=== PATIENT | male | born 1975 | race Two or more races ===

== ENCOUNTER 2019-03-16 18:32 | Inpatient (IN) | payer MEDICAID ==
[~2019-03-16] VITALS: Ht 193 cm; Wt 89.8 kg
--- NOTE | 2019-03-16 19:08 | NUR ---
"Hypertensive for a long time not on pills on 03/06 had incident which gave me panic attack/pressure on chest went to ER BP high meds given Ran out". STATES HAS HAD HX HTN SINCE AGE 15 BUT WAS NOT TREATED UNTIL RECENTLY. AOX4, RR EVEN AND UNLABORED, AMB, NO ACUTE DISTRESS NOTED. SKIN INTACT, ON MONITOR. READY FOR EVAL.
[2019-03-16] MEDS ORDERED: ENALAPRILAT INJ (1.25 MG/ML) 1.25 MG/ML VIAL IV ONE ×2 (19:28→22:12)
[2019-03-16] MEDS ORDERED: KETOROLAC TROMETHAMINE 15 MG/ML VIAL ONE (19:28)
[2019-03-16] MEDS ORDERED: ENALAPRILAT INJ (1.25 MG/ML) 1.25 MG/ML VIAL IV PRN (19:30)
[2019-03-16] MEDS ORDERED: KETOROLAC TROMETHAMINE INJ 30 MG/ML VIAL IV ONE (19:30)
[2019-03-16] MEDS ORDERED: IV NS 0.9% 500 ML BAG IV ONE (19:30)
[2019-03-16 20:03] LABS: CALCIUM, SERUM 9.4 mg/dL (8.5-10.1); CARBON DIOXIDE 26 mmol/L (21-32); CHLORIDE 105 mmol/L (98-107); CREATININE 0.9 mg/dL (0.6-1.3); GLUCOSE 98 mg/dL (74-106); POTASSIUM 3.8 mmol/L (3.5-5.1); SODIUM SERUM 141 mmol/L (136-145); UREA NITROGEN, BLOOD 11 mg/dL (7-18)
[2019-03-16 20:10] LABS: ALANINE AMINOTRANSFERASE 30 U/L (12-78); ALBUMIN 4.1 g/dL (3.4-5.0); ALKALINE PHOSPHATASE 78 U/L (46-116); ASPARTATE AMINOTRANSFERASE 20 U/L (15-37); BASOPHILS % (AUTO) 0.8 % (0.0-2.0); BILIRUBIN,DIRECT 0.1 mg/dL (0.0-0.2); BILIRUBIN,TOTAL 0.4 mg/dL (0.2-1.0); EOSINOPHILS % (AUTO) 3.7 % (0.0-6.0); HEMATOCRIT 49 % (39-51); HEMOGLOBIN 16.5 g/dL (13.5-17.5); LIPASE 176 U/L (73-393); LYMPHOCYTES # (AUTO) 1.8 /CMM (0.8-4.8); LYMPHOCYTES % (AUTO) 31.5 % (20.0-44.0); MEAN CORPUSCULAR HGB CONC 34 g/dl (31.0-36.0); MEAN CORPUSCULAR VOLUME 83 fL (80-96); MONOCYTES # (AUTO) 0.3 /CMM (0.1-1.30); MONOCYTES % (AUTO) 5.1 % (2.0-12.0); NEUTROPHILS # (AUTO) 3.4 /CMM (1.8-8.9); NEUTROPHILS % (AUTO) 58.9 % (43.0-81.0); PLATELET COUNT (AUTO) 201 /CMM (150-450); RED BLOOD CELL COUNT(AUTO) 5.85 MIL/uL (4.5-6.0); TOTAL PROTEIN, SERUM 7.8 g/dL (6.4-8.2); WHITE BLOOD COUNT (AUTO) 5.7 K/uL (4.3-11.0)
[2019-03-16] MEDS ORDERED: hydrALAZINE HCL IV 20 MG VIAL ONE (20:34)
--- NOTE | 2019-03-16 20:56 | NUR ---
Patient is resting comfortably in bed with eyes closed. Easily aroused. VSS Addendum: 03/17/19 at 0008 by CJUWONO STILL HYPERTENSIVE
[2019-03-16] MEDS ORDERED: hydrALAZINE HCL IV 20 MG VIAL IV ONE (21:00)
--- NOTE | 2019-03-16 21:49 | NUR ---
CALLED [facility]. [employer] DIRECTOR DR VILLATORO
--- NOTE | 2019-03-16 21:53 | NUR ---
CALLED [facility] FOR ICU BED
--- NOTE | 2019-03-16 21:58 | NUR ---
ICU BED 258 GIVEN
[2019-03-16] MEDS ORDERED: ASPIRIN 325 MG TABLET PO ONE (22:00)
[2019-03-16] MEDS ORDERED: LORAZEPAM INJ 2 MG/ML VIAL IV ONE (22:00)
[2019-03-16] MEDS ORDERED: NICARDIPINE HCL 20 MG in IV D5W 192 ML IV PRN (22:00)
[2019-03-16] MEDS ORDERED: NICARDIPINE IN DEXTROSE,ISO-OS 200 ML IV ONE (22:12)
[2019-03-16] MEDS ORDERED: ASPIRIN 81 MG TAB.CHEW ONE (22:18)
[2019-03-16] MEDS ORDERED: LORAZEPAM INJ 2 MG/ML VIAL ONE (22:20)
--- NOTE | 2019-03-16 23:22 | NUR ---
REPORT GIVEN TO JOVAN THAYER FOR ICU 258
--- NOTE | 2019-03-16 23:45 | NUR ---
[facility]
[2019-03-17] VITALS (57 sets, daily range): BP systolic 114–170; BP diastolic 67–108
[2019-03-17] MEDS ORDERED: ONDANSETRON HCL/PF 4 MG/2 ML VIAL IVP PRN
[2019-03-17] MEDS ORDERED: MAGNESIUM HYDROXIDE 30 ML UDC PO PRN
[2019-03-17] MEDS ORDERED: MAG HYDROX/AL HYDROX/SIMETH 30 ML UDC PO PRN
[2019-03-17] MEDS ORDERED: ZOLPIDEM TARTRATE 5 MG TABLET PO PRN
[2019-03-17] MEDS ORDERED: Z GUARD REMEDY 2 OZ OINT TP PRN
[2019-03-17] MEDS ORDERED: HYDROCODONE/APAP 5/325MG 1 EACH TABLET PO PRN
[2019-03-17] MEDS ORDERED: ACETAMINOPHEN 325 MG TABLET PO PRN
[2019-03-17] MEDS ORDERED: NICARDIPINE HCL 20 MG in IV D5W 192 ML IV PRN ×3 (01:00)
[2019-03-17 04:29] LABS: BASOPHILS % (AUTO) 0.3 % (0.0-2.0); EOSINOPHILS % (AUTO) 2.7 % (0.0-6.0); HEMATOCRIT 48 % (39-51); LYMPHOCYTES # (AUTO) 1.6 /CMM (0.8-4.8); LYMPHOCYTES % (AUTO) 22.6 % (20.0-44.0); MEAN CORPUSCULAR HGB CONC 35 g/dl (31.0-36.0); MEAN CORPUSCULAR VOLUME 81 fL (80-96); MONOCYTES # (AUTO) 0.4 /CMM (0.1-1.30); NEUTROPHILS % (AUTO) 69.4 % (43.0-81.0); PLATELET COUNT (AUTO) 194 /CMM (150-450); WHITE BLOOD COUNT (AUTO) 7.3 K/uL (4.3-11.0)
[2019-03-17 05:00] LABS: ALBUMIN 3.9 g/dL (3.4-5.0); BILIRUBIN,TOTAL 0.6 mg/dL (0.2-1.0); CALCIUM, SERUM 8.8 mg/dL (8.5-10.1); CREATININE 0.7 mg/dL (0.6-1.3); MAGNESIUM 1.9 mg/dL (1.8-2.4); PHOSPHORUS 3.3 mg/dL (2.5-4.9); POTASSIUM 3.5 mmol/L (3.5-5.1); TOTAL PROTEIN, SERUM 7.7 g/dL (6.4-8.2)
--- NOTE | 2019-03-17 07:15 | NUR ---
RECEIVED REPORT. PATIENT A/OX3, NO S/S DISTRESS NOTED. PATIENT DENIES COMPLAINTS. TELE NSR. ALL NEEDS IN REACH. SKIN, SAFETY, ASPIRATION PRECAUTIONS ALL IN PLACE
[2019-03-17] MEDS: LISINOPRIL (10MG) 10 MG TABLET PO SCH ×2 (09:02→17:31)
--- NOTE | 2019-03-17 09:35 | NUR ---
Obey CURRIE AT BEDSIDE. PER HEAVY RAIL TRAIN OPERATOR OK TO DOWNGRADE TO TELE. PLEASE ORDER PRN IVP HYDRALAZINE Q6H FOR SBP OVER 160
[2019-03-17] MEDS ORDERED: hydrALAZINE HCL IV 20 MG VIAL IV PRN (10:00)
--- NOTE | 2019-03-17 18:06 | NUR ---
care endorsed to otoniel cardoso for [facility]. pt vss throughout day. denies pain, sob, difficulty breathing. no s/s distress. per order transferred to tele bed 117-2 in stable condition. all belongings with patient.
--- NOTE | 2019-03-17 18:10 | NUR ---
EDUCATION REP NOTE RECEIVED REPORT FROM MARISA ALDANA .PATIENT IN ROOM 113-2.AXOX4.BRP.NO SOB NO DISTRESS NOTED.ON RA.DENIES ANY PAIN.SAFETY MEASURES AND ASPIRATION PRECAUTIONS IN PLACE.ON MONITOR SR HR.81.CALL LIGHT IN REACH.REQUESTED TO CALL FOR HELP.WILL CONTINUE TO MONITOR.
--- NOTE | 2019-03-17 18:59 | NUR ---
LAVATORY ATTENDANT CLOSING NOTE PATIENT ENDORSED TO PM NURSE FOR NICOLAS.
--- NOTE | 2019-03-17 20:10 | NUR ---
PETROLEUM REFINING EQUIPMENT OPERATOR OPENING NOTES RECEIVED REPORT FROM KERWIN ALDANA. PATIENT A/A/O X4. BREATHING EVEN & UNLABORED, TOLERATING ROOM AIR. DENIES ANY SOB OR DIFFICULTY BREATHING. ON TELE W/ SINUS RHYTHM, HR 70S. RIGHT & LEFT AC IV #20 INTACT & PATENT W/ DRESSING CDI, SALINE LOCKED. DENIES ANY PAIN OR DISCOMFORT @ THIS TIME. DENIES N/V OR DIZZINESS. SAFETY MEASURES IN PLACE W/ SIDE RAILS UP & CALL LIGHT WITHIN REACH. INSTRUCTED TO CALL FOR ASSISTANCE. WILL CONTINUE TO MONITOR.
[2019-03-18] VITALS: BP 155/103
[2019-03-18 04:00] VITALS: BP 158/94
[2019-03-18 08:00] VITALS: BP 143/96
[2019-03-18] MEDS: LISINOPRIL (10MG) 10 MG TABLET PO SCH (08:07)
[2019-03-18 12:00] VITALS: BP 149/98
[2019-03-18] MEDS ORDERED: LISI10TA59 PO (12:05)
--- NOTE | 2019-03-18 12:50 | NUR ---
CLAIMS ADJUSTER CROP NOTE PATIENT SEEN BY PEDIATRIC ONCOLOGY NURSE, GAVE ORDER FOR DISCHARGE. PATIENT RECEIVED MEDICATION UPON DISCHARGE, EXPLAINED TO PATIENT THE NEED TO FOLLOW UP WITH PRIMARY CARE DOCTOR. PATIENT IN NOW PAIN, BLOOD PRESSURE UPON DISCHAGE TAKEN BY RN 132/80. PROPERTIES LIST SIGNED, NO VACCINATION GIVEN REFUSED, IV SITES REMOVED AND WRIST BAND REMOVED. PATIENT WALKED OUTSIDE TO BE PICKED UP BY . REINFORCED TEACHING REGARDING IMPORTANCE OF FOLLOW UP TO PRIMARY CARE.
== END 2019-03-18 12:00 | disposition home or self-care (01) | DRG 199 ==
LOC: ER 18:32 → ICU 22:01 → TELE1 03-17 17:50
PROVIDERS: ADMIT Internal Medicine; ATTEND Nurse Practitioner Acute Care
DX: I16.1 Hypertensive emergency (principal); Z91.14 Patient's other noncompliance with medication regimen; I10 Essential (primary) hypertension
CPT/HCPCS: 36415; 71045-TC; 80048-TC; 80053-TC; 80061-TC; 80076-TC; 82533; 83690-TC; 83735-TC; 83880; 84100-TC; 84443-TC; 84484-TC; 85025-TC; 87081-TC; 93307-TC; G0378; J0360; J1885; J2060; J3490; J7040

== ENCOUNTER 2019-04-20 21:01 | Emergency (ER) | payer MEDICAID ==
[~2019-04-20] VITALS: Ht 193 cm; Wt 89.8 kg
[~2019-04-20 21:01] MED LIST: LISI10TA59 PO
--- NOTE | 2019-04-20 23:00 | NUR ---
BIBS FRO H/A AND HIGH BP. PT TAKES LISINIPRIL BID FOR HTN WHICH HE RUN OUT OF IT THREE DAYS AGO AND HE DID NOT JAZMIN TAKE IT. PER HIM "DOES NOT WANNA BE DEPENDENT ON IT" PT WAS PLACED ON A MONITOR ,
--- NOTE | 2019-04-20 23:17 | NUR ---
AT THE BED SIDE
[2019-04-20] MEDS ORDERED: LISINOPRIL (10MG) 10 MG TABLET PO STA (23:18)
[2019-04-20] MEDS ORDERED: hydrALAZINE HCL IV 20 MG VIAL IV ONE (23:30)
[2019-04-20] MEDS ORDERED: hydrALAZINE HCL IV 20 MG VIAL ONE (23:31)
[2019-04-20 23:33] LABS: BASOPHILS % (AUTO) 0.4 % (0.0-2.0); EOSINOPHILS % (AUTO) 2.8 % (0.0-6.0); HEMATOCRIT 44 % (39-51); HEMOGLOBIN 15.1 g/dL (13.5-17.5); LYMPHOCYTES # (AUTO) 1.8 /CMM (0.8-4.8); MEAN CORPUSCULAR HGB CONC 34 g/dl (31.0-36.0); MEAN CORPUSCULAR VOLUME 83 fL (80-96); MONOCYTES # (AUTO) 0.3 /CMM (0.1-1.30); NEUTROPHILS # (AUTO) 2.9 /CMM (1.8-8.9); NEUTROPHILS % (AUTO) 55.8 % (43.0-81.0); PLATELET COUNT (AUTO) 212 /CMM (150-450); RED BLOOD CELL COUNT(AUTO) 5.34 MIL/uL (4.5-6.0); WHITE BLOOD COUNT (AUTO) 5.2 K/uL (4.3-11.0)
[2019-04-20] MEDS ORDERED: LISINOPRIL (10MG) 10 MG TABLET ONE (23:35)
[2019-04-20 23:41] LABS: CARBON DIOXIDE 28 mmol/L (21-32); CHLORIDE 106 mmol/L (98-107); GLUCOSE 97 mg/dL (74-106); POTASSIUM 3.9 mmol/L (3.5-5.1); SODIUM SERUM 143 mmol/L (136-145); UREA NITROGEN, BLOOD 15 mg/dL (7-18)
[2019-04-21] MEDS ORDERED: hydrALAZINE HCL IV 20 MG VIAL IV ONE ×2 (00:30→03:00)
[2019-04-21] MEDS ORDERED: hydrALAZINE HCL IV 20 MG VIAL ONE (00:54)
[2019-04-21] MEDS ORDERED: ACETAMINOPHEN ES 500 MG TABLET PO ONE (01:00)
[2019-04-21] MEDS ORDERED: ACETAMINOPHEN ES 500 MG TABLET ONE (01:08)
[2019-04-21] MEDS ORDERED: CLONIDINE HCL 0.1 MG TABLET PO ONE (01:30)
[2019-04-21] MEDS ORDERED: CLONIDINE HCL 0.1 MG TABLET ONE (01:32)
[2019-04-21] MEDS ORDERED: MORPHINE SULFATE INJ 2 MG/ML DISP.SYRIN IV ONE (02:30)
[2019-04-21] MEDS ORDERED: ONDANSETRON HCL/PF - ER 4 MG/2 ML VIAL IV ONE (02:30)
[2019-04-21] MEDS ORDERED: MORPHINE SULFATE INJ 4 MG/ML DISP.SYRIN ONE (02:35)
[2019-04-21] MEDS ORDERED: ONDANSETRON HCL/PF 4 MG/2 ML VIAL ONE (02:35)
--- NOTE | 2019-04-21 03:46 | NUR ---
Patient discharged to home in stable condition. Rx and Written and verbal after care instructions given. Patient verbalizes understanding of instruction.
[2019-04-21 04:28] VITALS: BP 161/83
== END 2019-04-21 03:46 | disposition home or self-care (01) ==
LOC: ER 21:03
DX: I16.0 Hypertensive urgency (principal); R51 Headache; Z90.89 Acquired absence of other organs
CPT/HCPCS: 36415; 70450; 71045; 80048; 84484; 85025; 85730; 93005; 96374; 96375; 96376; 99284; J0360 ×2; J2270; J2405 ×2